=== PATIENT | male | born 1960 | race Caucasian/White ===

== ENCOUNTER 2022-06-14 09:09 | Emergency (ER) | payer MEDICARE, OTHER ==
[~2022-06-14] VITALS: Ht 185.4 cm; Wt 86.2 kg
[2022-06-14] MEDS ORDERED: KETOROLAC 60 MG/2 ML VIAL IM ONE (09:10)
--- NOTE | 2022-06-14 09:10 | NUR ---
[facility] BLS TAKEN TO BED 4
[2022-06-14 09:12] VITALS: BP 162/101
--- NOTE | 2022-06-14 09:22 | NUR ---
PLACED ON MONITOR, VSS 158/106, HR 86, RR 18, TEMP 98.7, O2 98%
[2022-06-14 11:27] VITALS: BP 152/85
--- NOTE | 2022-06-14 12:59 | NUR ---
PT CALLED FOR HIS RIDE, STATED SHE IS OUT TO LUNCH NOW, BUT WILL BE HERE SOON
--- NOTE | 2022-06-14 13:31 | NUR ---
IV DC D CANNULA INTACT, BLEEDING CONTROLLED
--- NOTE | 2022-06-14 13:31 | NUR ---
Patient discharged with v/s stable. Written and verbal after care instructions given and explained. Patient verbalized understanding. Wheel Chair Assisted with to car. All questions addressed prior to discharge. Advised to follow up with PMD.
== END 2022-06-14 13:31 | disposition home or self-care (01) ==
LOC: MED 09:09
DX: M25.512 Pain in left shoulder (principal); I10 Essential (primary) hypertension; Z86.73 Personal history of transient ischemic attack (TIA), and cerebral infarction without residual deficits; Z79.899 Other long term (current) drug therapy; Z98.890 Other specified postprocedural states
CPT/HCPCS: 73020; 73030; 96372; 99283; J1885; Q0092

== ENCOUNTER 2023-06-12 11:54 | Emergency (ER) | payer MEDICARE ==
[~2023-06-12] VITALS: Ht 177.8 cm; Wt 86.2 kg
[2023-06-12 11:58] VITALS: BP 146/66; PULSE 85; RESP 19; TEMP 98.1; O2SAT 95
[2023-06-12 12:54] LABS: FLU A ANTIGEN negative (NEGATIVE); FLU B ANTIGEN negative (NEGATIVE)
[2023-06-12] MEDS ORDERED: ROB PO (13:14)
[2023-06-12] MEDS ORDERED: ALBU0.0912 INH (13:14)
== END 2023-06-12 13:41 | disposition home or self-care (01) ==
LOC: MED 11:54
DX: J06.9 Acute upper respiratory infection, unspecified (principal); Z20.822 Contact with and (suspected) exposure to COVID-19; I10 Essential (primary) hypertension; Z86.73 Personal history of transient ischemic attack (TIA), and cerebral infarction without residual deficits; Z79.899 Other long term (current) drug therapy
CPT/HCPCS: 71045; 99284